=== PATIENT | female | born 1995 | race Caucasian/White ===

== ENCOUNTER 2019-08-15 02:31 | Inpatient (IN) | payer SELFPAY ==
[~2019-08-15] VITALS: Ht 167.6 cm; Wt 82.5 kg
[~2019-08-15 02:31] MED LIST: AMOX500 PO; CEPH500 PO; DOCU100 PO; HYDACE5 PO; HYDACE5325 PO; INCARCERATION; NITR100CA PO; Naprosyn500 MG PO; Norco 10-325 T1 EACH PO; Norco 5-325 Ta1 EACH PO; PENVK500 PO; Pepcid40 MG PO; Phenergan25 M1 PO; RXHYD5325 PO; SULTRIDS PO; Ultram50 MG PO; Verotin-Gr Cap1 EACH PO
[2019-08-15 03:05] LABS: Calcium, Ionized (POC) 1.04 mmol/L (1.10-1.46); Chloride (POC) 105 mmol/L (98-108); Creatinine (POC) 0.6 mg/dL (0.6-1.0); Glucose (ISTAT POC) 120 mg/dL (70-99); Hemoglobin (POC) 12.6 g/dL (12.0-16.0); Potassium (POC) 4.1 mmol/L (3.5-5.5); Sodium (POC) 139 mmol/L (135-148); Total CO2 (POC) 26 mmol/L (21-32)
[2019-08-15 03:06] LABS: BASOPHILS ABSOLUTE AUTO 0.04 K/mm3 (0.00-0.23); BASOPHILS PERCENT AUTO 1 % (0-2); EOSINOPHILS ABSOLUTE AUTO 0.08 K/mm3 (0.00-0.68); EOSINOPHILS PERCENT AUTO 1 % (0-6); Hematocrit 37.8 % (33.0-51.0); Hemoglobin 12.6 g/dL (11.5-16.0); IMMATURE GRAN ABSOLUTE AUTO 0.02 K/mm3 (0.00-0.10); IMMATURE GRAN PERCENT AUTO 0 % (0-1); LYMPHOCYTES ABSOLUTE AUTO 2.34 K/mm3 (0.84-5.20); LYMPHOCYTES PERCENT AUTO 34 % (21-46); MONOCYTES ABSOLUTE AUTO 0.55 K/mm3 (0.16-1.47); MONOCYTES PERCENT AUTO 8 % (4-13); Mean Corpuscular HGB 31.3 pg (26.0-34.0); Mean Corpuscular HGB Conc 33.3 g/dL (31.5-36.5); Mean Corpuscular Volume 94 fL (80-100); Mean Platelet Volume 12.2 fL (9.1-12.4); NEUTROPHILS ABSOLUTE AUTO 3.86 K/mm3 (1.96-9.15); NEUTROPHILS PERCENT AUTO 56 % (41-73); Platelet Count 186 K/mm3 (150-400); RDW Coefficient Variation 11.9 % (11.7-14.2); RDW Standard Deviation 41.9 fL (35.1-46.3); Red Blood Cell Count 4.03 M/mm3 (3.80-5.20); White Blood Cell Count 6.89 K/mm3 (4.00-11.30)
[2019-08-15 03:26] LABS: Source, Urine Catheter
[2019-08-15 03:27] LABS: Bilirubin, Urine Neg (Neg); Blood, Urine Neg (Neg); Glucose Qualitative, Urine Neg (Neg); Ketones, Urine 1+ (Neg); Leukocyte Esterase, Urine 1+ (Neg); Nitrite, Urine Neg (Neg); Protein, Urine 1+ (Neg); Urobilinogen, Urine 3+ (Normal)
[2019-08-15 03:30] LABS: Alanine Aminotransfer (ALT/SGP 69 U/L (12-78); Albumin, Blood 3.7 g/dL (3.4-5.0); Albumin/Globulin Ratio 1.1 (0.8-1.8); Alk Phos 86 U/L (50-136); Anion Gap 7 mmol/L (6-16); Aspartate Aminotrans (AST/SGOT 46 U/L (12-37); Bilirubin, Total 0.2 mg/dL (0.1-1.0); Blood Urea Nitrogen 15 mg/dL (8-24); CO2, Blood 26 mmol/L (21-32); Calcium, Blood 8.1 mg/dL (8.5-10.1); Chloride, Blood 108 mmol/L (98-108); Creatinine, Blood 0.65 mg/dL (0.40-1.00); Globulin, Blood 3.4 g/dL (2.2-4.0); Glomerular Filtration Rate >60 (60-); Glucose, Blood 114 mg/dL (70-99); Sodium, Blood 141 mmol/L (136-145); Total Protein, Blood 7.1 g/dL (6.4-8.2); Troponin I <0.015 ng/mL (0.000-0.040)
[2019-08-15 03:38] LABS: U Amphetamine Screen DETECTED; U Barbituate Screen Not Detected; U Benzodiazapine Screen Not Detected; U Cannabinoids Screen Not Detected; U Cocaine Screen Not Detected; U Methadone Screen Not Detected; U Methamphetamine Screen Not Detected; U Opiates Screen Not Detected; U Phencyclidine Screen Not Detected
[2019-08-15 03:39] LABS: U Buprenorphine Screen Not Detected; U Oxycodone Screen DETECTED; U Propoxyphene Screen Not Detected
[2019-08-15 03:41] LABS: Amorphous Mod (0-Heavy); Appearance, Urine Hazy (Clear); Bacteria Few /hpf; Color, Urine Yellow (P-Yellow); Mucus Light (0-Heavy); Red Blood Cells, Urine Not Seen /hpf (0-2); Squamous Epithelial Cells Few /hpf (Few)
--- NOTE | 2019-08-15 04:00 | NUR ---
ADMIT: PT TRANSFERRED TO ICU 7 VIA GURNEY WITH 2 RN'S AND RT AT BEDSIDE. PT TAKEN DOWN TO [facility] FOR HEAD CT. PT INTUBATED WITH 7.5 ETT 23 @ LIP. LS CLEAR T/O WITH BIOX 100% ON VENT SETTING AC 16, TV 450, FIO2 25% AND PEEP 5. HEART SOUNDS S1 AND S2 AUSCULTATED WITH MONITOR SHOWING NSR WITH HR 80. SKIN, PINK WARM AND DRY WITH BRUISES ON BILAT THIGHS. 20G IV R HAND WITH PROPOFOL AT 29.7CC/HR=60MCG/KG/MIN. 18G L WRIST S/L. NEW 20G IV PLACED R AC WITH NS AT 200CC/HR. ABD R/S WITH BTX4. OG TO SUCTION TO DRAIN STOMACH. PAULINO DRAINING CLEAR YELLOW URINE. SPOKE WITH POISON CONTROL ABOUT ORDER FOR CHARCOAL TO BE GIVEN DOWN OG. JOSE AT POISON CONTROL RECOMMENDED GIVING IT FOR THE SOUL PURPOSE OF KNOWING WHEN THE HEROIN HAD ALL PASSED. CHARCOAL GIVEN DOWN OG, OG CLAMPED.
[2019-08-15 04:38] LABS: PO2 Arterial 126 mmHg (80-100); pH Blood Arterial 7.48 (7.35-7.45)
--- NOTE | 2019-08-15 08:17 | NUR ---
ASSUMPTION OF CARE PT INTUBATED AND SEDATED, RESPONDS TO NOXIOUS STIMULI, VENT SET TO AC 16/450/25%/5, O2 SATURATIONS 99-100%. MONITOR SHOWS NSR WITH RATE IN THE 80'S, BP STABLE WITH MAPS IN THE 80'S. PROPOFOL CURRENTLY INFUSING AT 60mcg, PLAN FOR SEDATION VACATION THIS SHIFT AND POSSIBLE EXTUBATION.
--- NOTE | 2019-08-15 08:32 | NUR ---
SEDATION VACATION PROPOFOL PLACED ON STANDBY FOR APPROX 20 MINUTES. PT BECAME AGITATED, NOT FOLLOWING DIRECTIONS, NOT OPENING EYES. PROPOFOL STARTED BACK AT 60mcg. PLAN TO TITRATE PROPOFOL DOWN AND CONSULT PULMONOLOGY.
--- NOTE | 2019-08-15 08:57 | NUR ---
DR JETER NOTIFIED OF CONSULT. PROPOFOL TURNED DOWN TO 40mcg.
--- NOTE | 2019-08-15 09:14 | NUR ---
DR DAWSON IN TO SEE PT, UPDATED ON SEDATION VACATION AND NOTIFIED THAT DR JETER WILL BE IN TO SEE PT. DR DAWSON REQUESTS SI EVALUATION BE DONE ONCE PT IS EXTUBATED.
--- NOTE | 2019-08-15 09:37 | NUR ---
SPOKE WITH LUIS (PHARMACIST) WITH POISON CONTROL, UPDATED ON PTS STATUS. PER LUIS, NO OTHER RECOMMENDATIONS FROM POISON CONTROL OTHER THAN NALOXONE FOR RESPIRATORY DEPRESSION.
[2019-08-15 09:42] LABS: Alanine Aminotransfer (ALT/SGP 60 U/L (12-78); Albumin, Blood 3.4 g/dL (3.4-5.0); Alk Phos 79 U/L (50-136); Anion Gap 6 mmol/L (6-16); Aspartate Aminotrans (AST/SGOT 40 U/L (12-37); Bilirubin, Total 0.4 mg/dL (0.1-1.0); Blood Urea Nitrogen 10 mg/dL (8-24); CO2, Blood 23 mmol/L (21-32); Chloride, Blood 112 mmol/L (98-108); Creatinine, Blood 0.56 mg/dL (0.40-1.00); Globulin, Blood 3.5 g/dL (2.2-4.0); Glomerular Filtration Rate >60 (60-); Glucose, Blood 148 mg/dL (70-99); Sodium, Blood 141 mmol/L (136-145); Total Protein, Blood 6.9 g/dL (6.4-8.2)
[2019-08-15 09:44] LABS: Anion Gap 6 mmol/L (6-16); Blood Urea Nitrogen 10 mg/dL (8-24); Bun/Creatinine Ratio 18.6 (12.0-20.0); CO2, Blood 23 mmol/L (21-32); Chloride, Blood 112 mmol/L (98-108); Creatinine, Blood 0.54 mg/dL (0.40-1.00); Glomerular Filtration Rate >60 (60-); Glucose, Blood 147 mg/dL (70-99); Sodium, Blood 141 mmol/L (136-145)
--- NOTE | 2019-08-15 10:05 | NUR ---
DR JETER IN TO SEE PT. ORDERED A REPEAT TOX SCREEN, SPECIMEN SENT TO LAB. PLAN TO KEEP PT INTUBATED, WILL WEAN TOMORROW AM.
--- NOTE | 2019-08-15 10:11 | NUR ---
PT PULLING AT LINES, GRABBING FOR ETT DURING TURN, PROPOFOL TURNED UP TO 60.
[2019-08-15 10:14] LABS: U Amphetamine Screen DETECTED; U Barbituate Screen Not Detected; U Benzodiazapine Screen Not Detected; U Buprenorphine Screen Not Detected; U Cannabinoids Screen Not Detected; U Cocaine Screen Not Detected; U Methadone Screen Not Detected; U Methamphetamine Screen DETECTED; U Opiates Screen Not Detected; U Oxycodone Screen Not Detected; U Phencyclidine Screen Not Detected; U Propoxyphene Screen Not Detected
--- NOTE | 2019-08-15 12:09 | NUR ---
PT'S SISTER AND MOTHER AT BEDSIDE; DR JETER IN ROOM TO GIVE UPDATE.
--- NOTE | 2019-08-15 15:53 | NUR ---
DURING ORAL CARE PT BECAME SEVERELY AGITATED, THRASHING, KICKING LEGS, ATTEMPTED TO PULL ETT OUT, NOT REDIRECTABLE. PROPOFOL TEMPORARILY INCREASED, STIMULUS REDUCED, PROPOFOL TITRATED TO 65mcg.
--- NOTE | 2019-08-15 18:09 | NUR ---
SHIFT SUMMARY PT REMAINS INTUBATED AND SEDATED, VENT SET TO AC 16/450/5/25%, O2 SATURATIONS MAINTAINED IN HIGH 90'S, VSS. PT IS EASILY AGITATED WITH CARE/REPOSITIONING, PULLS AGAINST RESTRAINTS, GRABS TOWARDS ETT. PROPOFOL TITRATED UP TO 65mcg THIS SHIFT WITH GOOD EFFECT. PT WAS ABLE TO INSURANCE EXAMINER ONE HAND ON COMMAND DURING PERIOD OF AROUSAL, PT OTHERWISE UNDIRECTABLE.
--- NOTE | 2019-08-15 19:20 | NUR ---
ASSUMED CARE OF PT, CALLED TO BEDSIDE BY RT PER RT MOTHER WAS AT BEDSIDE SPEAKING WITH PT "COME ON BABY, JUST GIVE ME SOMETHING, SQUEEZE MY HAND" RT NIRU PROVIDED EDUCATION TO PT MOTHER REGARDING PURPOSE OF SEDATION WELL REASONING FOR MAINTAINING PATIENT IN A RELAXED STATE. MOTHER CONTINUED TO INCREASE PATIENT STIMULATION UNTIL PATIENT WAS THRASHING IN BED AND ATTEMPTING TO SIT UP TOWARD RIGHT HAND AND REACHING TOWARD ETT WITH RIGHT HAND. PT CONTINUES AGITATED ON THIS RN'S ARRIVAL TO ROOM, DOES NOT FOLLOW DIRECTION AT THIS TIME, ATIVAN 1 MG IV ADMINISTERED IV PER ORDER, AGITATION CONTINUED AND PROPOFOL WAS INCREASED TO 70 MCG/KG/MIN. PT CALMS FOLLOWING PROPOFOL TITRATION. VENT SETTINGS ARE AC 16, TV 450, FIO2 21% AND PEEP 5, SATS ARE 99-100% AT THIS TIME AND LUNGS ARE CLEAR THROUGHOUT, RESP RATE CURRENTLY 16. HRR, SINUS ON MONITOR, PRESSURE MAINTAINING, PULSES ARE STRONG X 4 EXTREMITIES, SKIN PWD, BRISK CAP REFILL. ABD SOFT, HYPOACTIVE BOWEL TONES ARE NOTED, OG TUBE IN PLACE, CLAMPED, NO GRIMACING OR GUARDING WITH LIGHT PALPATION. TEMP PROBE PAULINO IN PLACE DRAINING CLEAR GREEN URINE TO GRAVITY, WILL MONITOR.
[2019-08-16 03:58] LABS: Anion Gap 8 mmol/L (6-16); Blood Urea Nitrogen 8 mg/dL (8-24); CO2, Blood 19 mmol/L (21-32); Calcium, Blood 7.4 mg/dL (8.5-10.1); Chloride, Blood 114 mmol/L (98-108); Creatinine, Blood 0.57 mg/dL (0.40-1.00); Glomerular Filtration Rate >60 (60-); Glucose, Blood 89 mg/dL (70-99); Potassium, Blood 3.9 mmol/L (3.5-5.5); Sodium, Blood 141 mmol/L (136-145)
--- NOTE | 2019-08-16 05:16 | NUR ---
PROPOFOL TO STANDBY FOR SPONT BREATHING TRIAL, RT AT BEDSIDE, WILL BERT
--- NOTE | 2019-08-16 06:00 | NUR ---
SPONT BREATHING TRIAL COMPLETE, PT IS AWAKE AT THIS TIME, SPONT OPENING EYES AND FOLLOWING COMMANDS. SHE ANSWERS YES/NO QUESTIONS. ANSWERS YES TO PAIN, NO TO BACK PAIN, YES TO THROAT PAIN, AND YES TO TOO COLD. WARM BLANKET PROVIDED, EXPLAINED TO PT THAT SHE IS IN ICU ON VENTILATOR AND THAT SPONT BREATHING TRIAL WAS SUCCESSFUL. EXPLAINED TO PT THAT SEDATION WAS TO BE RESUMED FOR HER COMFORT SHE INITIALLY ANSWERS NO TO THIS HOWEVER NODS HEAD YES AFTER EXPLAINED THAT PAIN MEDICATION WILL ALSO BE ADMINISTERED FOR THROAT PAIN. SEDATION RESUMED, WILL MONITOR
--- NOTE | 2019-08-16 07:15 | NUR ---
REC'D BEDSIDE REPORT FROM SAIMA FERRER AND AM NOW ASSUMING CARE OF THIS PT. PT CURRENTLY INTUBATED AND SEDATED ON 60MCG/KG/MIN OF PROPOFOL. REMAINS IN BILATERAL WRIST RESTRAINTS. PT IS CALM/QUIET UPON ARRIVAL, HOWEVER, ANY NOXIOUS STIMULI CAUSES PT TO THRASH HEAD AND UE/LE'S. LUNGS ARE CLEAR T/O. ETT 7.5 AND 23 AT THE LIP. VENT SETTINGS: AC-16/450/5/21%. NOC REPORTS PT PASSED WEANING TRIAL THIS AM. WILL DISCUSS POSSIBLE INTUBATION WITH GREASER HELPER. BP'S STABLE AT THIS TIME. NS @ 75ML/HR. SCD'S IN PLACE FOR DVT PROPYLAXIS. ABD SOFT/ROUND/NON-TENDER WITH HYPOACTIVE BT'S X4 QAUDS. OG TUBE IN PLACE AND CLAMPED AT THIS TIME. PAULINO DRAINING CLEAR, GREEN URINE TO GRAVITY.
--- NOTE | 2019-08-16 09:23 | NUR ---
DR ROLDAN AT THE BEDSIDE TO ASSESS PT. WILL ATTEMPT TO EXTUBATE TODAY. WILL USE PRECEDEX AND START TO LOWER PROPOFOL AND ASSESS PT ON SPONTANEOUS, SHE CAN TOLERATE LOWERING SEDATION.
[2019-08-16 09:35] LABS: BASOPHILS ABSOLUTE AUTO 0.02 K/mm3 (0.00-0.23); BASOPHILS PERCENT AUTO 0 % (0-2); EOSINOPHILS ABSOLUTE AUTO 0.03 K/mm3 (0.00-0.68); EOSINOPHILS PERCENT AUTO 0 % (0-6); Hematocrit 34.9 % (33.0-51.0); Hemoglobin 11.5 g/dL (11.5-16.0); IMMATURE GRAN ABSOLUTE AUTO 0.02 K/mm3 (0.00-0.10); IMMATURE GRAN PERCENT AUTO 0 % (0-1); LYMPHOCYTES ABSOLUTE AUTO 1.89 K/mm3 (0.84-5.20); LYMPHOCYTES PERCENT AUTO 19 % (21-46); MONOCYTES ABSOLUTE AUTO 0.59 K/mm3 (0.16-1.47); MONOCYTES PERCENT AUTO 6 % (4-13); Mean Corpuscular HGB 31.3 pg (26.0-34.0); Mean Corpuscular Volume 95 fL (80-100); Mean Platelet Volume 12.5 fL (9.1-12.4); NEUTROPHILS ABSOLUTE AUTO 7.61 K/mm3 (1.96-9.15); NEUTROPHILS PERCENT AUTO 75 % (41-73); Platelet Count 159 K/mm3 (150-400); RDW Coefficient Variation 12.3 % (11.7-14.2); RDW Standard Deviation 42.9 fL (35.1-46.3); Red Blood Cell Count 3.68 M/mm3 (3.80-5.20); White Blood Cell Count 10.16 K/mm3 (4.00-11.30)
--- NOTE | 2019-08-16 10:00 | NUR ---
UPDATED GRANDMOTHER: PT'S GRANDMOTHER AT THE BEDSIDE. SHE REPORTS DIFFICULT FAMILY DYNAMICS. REPORTS SHE HAS BEEN CARING FOR THE PT'S 7 YO DAUGHTER SINCE SHE WAS 1 YO, THE PT HAS BEEN "SELLING" DRUGS FOR YEARS. REPORTS SHE WENT TO ASSISTED FOR A COUPLE OF YEARS R/T THIS, WENT THROUGH REHAB, AND WAS "CLEAN FOR AWHILE." THEN REPORTS FINANCIAL STRUGGLES AND PT STARTED BOTH SELLING AND USING AGAIN. REPORTS PT WAS LIVING AT HER HOUSE FOR APPROX A MONTH, BUT WAS ASKED TO MOVE OUT R/T TO THE DRUGS AND UNFAVORABLE PEOPLE IN AND OUT OF THE HOUSE. UPDATED GRANDMOTHER ON PT'S STATUS AND POTENTIAL EXTUBATION TODAY.
--- NOTE | 2019-08-16 12:08 | NUR ---
PT UPDATE: PT NOW MORE AWAKE. PT ABLE TO OPEN EYES AND FOLLOW COMMANDS. HOWEVER, PT IS VERY RESTLESS WHEN LESS SEDATED. PRECEDEX @ 0.6MCG/KG/MIN TO ASSIST WITH EXTUBATION. CALLED RT CHEYANNE TO SWITCH TO SPONTANEOUS MODE.
--- NOTE | 2019-08-16 13:42 | NUR ---
PT EXTUBATED: PT PLACED ON 2L 02 VIA N/C AT TIME OF EXTUBATION. SATS- 99-100% ON 2L 02. PT NOW CALM WITH USE OF PRECEDEX @ 0.5MCG/KG/MIN. PT OUT OF RESTRAINTS WHEN EXTUBATED.
--- NOTE | 2019-08-16 15:31 | NUR ---
PT UPDATE: PT DRANK SMALL SIPS OF WATER AND A COUPLE ICE CHIPS WITHOUT DIFFICULTY. AFTER TAKING THE FIRST SIP OF WATER PT STATES, "MY THROAT F HURTS! WHY THE F DID THEY STICK A TUBE DOWN MY THROAT?" EDUCATED PT ON THE NEED FOR INTUBATION. WILL CONTINUE TO WEAN DOWN PRECEDEX GTT. PT'S BOYFRIEND AND SISTER CURRENTLY AT THE BEDSIDE.
--- NOTE | 2019-08-16 18:00 | NUR ---
SHIFT SUMMARY: PT EXTUBATED EARLIER TODAY AND SATS 99-100% ON 2L 02 VIA N/C. PT CONTINUES TO REPORT THROAT DISCOMFORT R/T INTUBATION. EXPLAINED TO PT SHE WAS THRASHING CONSTANTLY WHILE DOING WEANING TRIALS. PT DID WELL WITH SIPS OF WATER, NO CHOKING/SPUTTERING/COUGHING. FAMILY CURRENTLY AT THE BEDSIDE. LUNGS WITH SOME INTERMITTENT COARSENESS BILATERALLY THAT CLEARED WITH COUGH. PT APPEARS TO BE SWALLOWING SPUTUM. HR REGULAR, SB-50'S RANGE. PT REMAINS ON PRECEDEX @ 0.4MCG/KG/MIN FOR HIGH ANXIETY. PT HAS CONTINUED GENERALIZED EDEMA IN THE BILATERAL UE'S. ABD SOFT/ROUND/NON-TENDER. BT'S REMAIN HYPOACTIVE. CAN ASK FOR ADVANCEMENT OF DIET W/DR ONCE PT MORE CONSISTENTLY AWAKE.
--- NOTE | 2019-08-16 19:26 | NUR ---
REPORTED OFF TO SAIMA MILES WHOM IS NOW ASSUMING CARE OF PT.
--- NOTE | 2019-08-16 19:52 | NUR ---
CARE ASSUMED REPORT RECEIVED, CARE ASSUMED AT 1900. PT ALERT, CALM. REPORTS PAIN 10/10 IN THROAT. MEDICATED WITH FENTANYL. PRECEDEX TITRATED DOWN. VITALS STABLE. TWO VISITORS INCLUDING PT'S SISTER AND A MALE AT BEDSIDE FOR 15 MINUTE VISIT. TEARFUL WITH PATIENT. PT'S MOTHER AND DAUGHTER ATTEMPTING TO VISIT BUT PT STATES, "I DON'T WANT THEM HERE."
--- NOTE | 2019-08-17 04:08 | NUR ---
SUMMARY SINCE PREVIOUS NOTE, PT HAS RESTED QUIETLY MAJORITY OF NIGHT. PT TITRATED OFF OF PRECEDEX. PT UP TO BATHROOM PER REQUEST. PAULINO REMOVED. PT ABLE TO WALK AROUND ROOM WITHOUT DIZZINESS OR SHORTNESS OF BREATH. UPDATED HOSPITALIST AND PT CHANGED TO PCU STATUS. VITAL SIGNS STABLE. PT HAS DENIED NEEDS OTHERWISE.
--- NOTE | 2019-08-17 04:26 | NUR ---
REPORT TO SAIMA FERRER TO ASSUME CARE AT THIS TIME
--- NOTE | 2019-08-17 06:53 | NUR ---
ASSUMED CARE AT 0400, PT RESTS QUIETLY, COMPLAINS OF SORE THROAT AND FEELING COLD, WARM BLANKETS PROVIDED. IS NOTED TO GET UP TO TOILET WITHOUT ASSIST AND REMOVE MONITORING EQUIPMENT, ENCOURAGED TO CALL FOR ASSISTANCE. PRECEDEX HAS BEEN OFF SINCE MIDNOC AND PT CONTINUES TO REST QUIETLY THIS AM.
--- NOTE | 2019-08-17 07:00 | NUR ---
ASSUMED CARE: RECEIVED REPORT FROM KACY RN. PT SLEEPING UPON ENTERING ROOM. NO ACUTE DISTRESS NOTED. WILL CONTINUE TO MONITOR AND ASSESS FURTHER.
--- NOTE | 2019-08-17 08:40 | NUR ---
FOOD & THROAT LOZENGES: TALKED TO DR MCKENZIE AND RECEIVED A DIET ORDER. TRAY NOW ORDERED AND GIVEN TO PT. CEPACOL LOZENGES ORDERED AND PLACED IN COMPUTER.
--- NOTE | 2019-08-17 10:37 | NUR ---
LEFT THE UNIT: PT WALKED OUT THE UNIT WITH IV, GOWN ON AND CLIFF BEAR. MICHELLE ZUNIGA RN ATTEMPTED TO FOLLOW, BUT UNABLE TO PT WAS ALREADY OUTSIDE THE DOORS EXITING THE BUILDING. SECURITY CALLED AND NOTIFIED. DR MKCENZIE MADE AWARE AT THIS TIME.
--- NOTE | 2019-08-17 11:07 | NUR ---
SECURITY UPDATE: DAVID FROM SECURITY CAME IN TO UPDATE. ER NURSE WAS ABLE TO REMOVE IV'S PRIOR TO PT LEAVING HOSPITAL GROUNDS.
== END 2019-08-17 10:40 | disposition left against medical advice (07) | DRG 917 ==
LOC: ER 02:31 → ICUW 03:48 → ICUE 03:48
PROVIDERS: Emergency Medicine; Internal Medicine Critical Care Medicine; ADMIT Hospitalist
PROC: 0BH17EZ Insertion of Endotracheal Airway into Trachea, Via Natural or Artificial Opening (ICD-10-PCS; principal; 2019-08-15)
PROC: 5A1935Z Respiratory Ventilation, Less than 24 Consecutive Hours (ICD-10-PCS; 2019-08-15)
DX: T40.1X2A Poisoning by heroin, intentional self-harm, initial encounter (principal); J96.01 Acute respiratory failure with hypoxia; G92 Toxic encephalopathy; T43.622A Poisoning by amphetamines, intentional self-harm, initial encounter; F32.9 Major depressive disorder, single episode, unspecified; F17.210 Nicotine dependence, cigarettes, uncomplicated; R40.2432 Glasgow coma scale score 3-8, at arrival to emergency department
CPT/HCPCS: 31500; 31720; 36415; 36600; 51702; 70450; 71045; 80047; 80048; 80053; 81001; 81025; 82803; 83735; 84443; 84484; 85014; 85025; 87081; 87086; 93005; 93010; 94002; 94003; 96365-59; 96375-59; 96376-59; 99291-25; C9113; J0171; J0330; J1650; J2060; J2250; J2310; J2704; J2930; J3010; J7030